=== PATIENT | female | born 1950 | race Caucasian/White ===

== ENCOUNTER → 2017-05-16 | Outpatient (CLI) | payer OTHER, MEDICARE | LOC: RAD 03:55 | DX: Z12.31 Encounter for screening mammogram for malignant neoplasm of breast (principal) ==

== ENCOUNTER → 2018-05-22 | Outpatient (CLI) | payer OTHER, MEDICARE | LOC: RAD 02:56 | DX: Z12.31 Encounter for screening mammogram for malignant neoplasm of breast (principal) ==

== ENCOUNTER → 2019-05-24 | Outpatient (CLI) | payer OTHER, MEDICARE | LOC: RAD 08:59 | DX: Z12.31 Encounter for screening mammogram for malignant neoplasm of breast (principal) ==

== ENCOUNTER → 2020-04-27 | Outpatient (CLI) | payer OTHER, MEDICARE ==
[~2020-04-27] MED LIST: CALCIUM500 MG PO; CARAFATE 1 GM TA1 GM PO; ESTRACE2 MG PO; LEVOXYL112 MCG PO; MAGNESIUM400 MG PO; OMEPRAZOLE40 MG PO; OXYBUTYNIN 5 MG5 M2 PO; POTASSIUM GLUC500 MG PO; PROVERA2.5 MG PO; SLEEP AID50 MG PO; VITAMIN B-122500 MCG SUBLING; VITAMIN D325 MC3 PO; ZESTRIL30 MG PO; ZETIA10 MG PO
== END ==
LOC: LAB 08:07
PROVIDERS: ATTEND Specialist
DX: Z01.812 Encounter for preprocedural laboratory examination (principal); Z20.828 Contact with and (suspected) exposure to other viral communicable diseases

== ENCOUNTER → 2020-05-26 | Outpatient (CLI) | payer OTHER, MEDICARE | LOC: BC 09:55 → RAD 15:44 → BC 16:16 | PROVIDERS: ATTEND Family Medicine | DX: Z12.31 Encounter for screening mammogram for malignant neoplasm of breast (principal) ==